=== PATIENT | male | born 1955 | race Caucasian/White ===

== ENCOUNTER → 2017-01-05 | Outpatient (CLI) | payer MEDICARE, BC | END | disposition home or self-care (01) | LOC: RAD 07:48 | PROVIDERS: ATTEND Internal Medicine Hematology & Oncology | DX: Z51.11 Encounter for antineoplastic chemotherapy (principal); Z45.2 Encounter for adjustment and management of vascular access device; C61 Malignant neoplasm of prostate | CPT/HCPCS: 36569; 76937; 77001; C1751 ==

== ENCOUNTER 2017-01-20 13:56 | Emergency (ER) | payer MEDICARE, BC ==
[~2017-01-20] VITALS: Ht 177.8 cm; Wt 84.0 kg
[2017-01-20 13:59] VITALS: BP 118/70
[2017-01-20] MEDS ORDERED: TBO-FILGRASTIM 480 MCG/0.8 ML SQ ONE (15:00)
== END 2017-01-20 15:33 | disposition home or self-care (01) ==
LOC: ED 15:30
DX: C61 Malignant neoplasm of prostate (principal); D70.9 Neutropenia, unspecified; I48.91 Unspecified atrial fibrillation; Z85.46 Personal history of malignant neoplasm of prostate
CPT/HCPCS: 96372; 99283; J1447

== ENCOUNTER 2019-05-23 09:16 | Outpatient (CLI) | payer MEDICARE ==
[~2019-05-23 09:16] MED LIST: ANAS1TAB PO; DILT240C61 PO; FURO20TA3 PO; M-171CAP PO; METO50TA6 PO; POTA10CA PO
== END 2019-05-23 23:59 | disposition home or self-care (01) ==
LOC: RAD 09:16
PROVIDERS: ATTEND Internal Medicine Hematology & Oncology
DX: Z45.2 Encounter for adjustment and management of vascular access device (principal); C61 Malignant neoplasm of prostate; I48.20 Chronic atrial fibrillation, unspecified; Z87.891 Personal history of nicotine dependence
CPT/HCPCS: 36573; C1751